=== PATIENT | female | born 1935 | race Caucasian/White ===

== ENCOUNTER 2020-01-28 14:13 | Emergency (ER) | payer MEDICARE, SELFPAY ==
[2020-01-28 14:16] VITALS: BP 185/100; PULSE 85; RESP 22; TEMP 36.5; O2SAT 98; BMI 37.1
--- NOTE | 2020-01-28 14:27 | EKG12_ITS ---
Test Reason : Blood Pressure : / mmHG Vent. Rate : 088 BPM Atrial Rate : 107 BPM P-R Int : 000 ms QRS Dur : 078 ms QT Int : 370 ms P-R-T Axes : 000 -05 022 degrees QTc Int : 447 ms Atrial fibrillation Inferior infarct , age undetermined Possible Anterolateral infarct , age undetermined Abnormal ECG Confirmed by HASMUKH COLE, CORINA ([id number]), avid editor DANY TELLES ([id number]) on 02/01/2020 1:34:35 PM Referred By: Confirmed By:CORINA NOE MD
--- NOTE | 2020-01-28 14:27 | RAD_ITS ---
STUDY: X-RAY CHEST REASON FOR EXAM: Female, 84 years old. Right side back pain that radiates into arm, dyspnea on exertion TECHNIQUE: PA and lateral views of the chest. COMPARISON: None. FINDINGS: EKG electrodes are seen. Calcified granulomatous disease. Mild elevation of the right hemidiaphragm. No acute abnormality is seen. There is no demonstrated pleural abnormality. Normal size heart. There are calcified mediastinal lymph nodes. Normal visualized pulmonary arteries. There is atherosclerotic calcification of the aortic arch with tortuosity. There are diffuse degenerative changes of the visualized thoracic spine. Normal visualized ribs, clavicles, and shoulders. There is no demonstrated abnormality of the visualized soft tissue structures of the upper abdomen. RAD/Chest PA and Lateral IMPRESSION: No acute abnormality is seen. Electronically Signed: Servando Dominguez, at 15:08 EDT , Service support ,
--- NOTE | 2020-01-28 14:28 | ED.DCSUM_ITS ---
History of Present Illness Chief Complaint: Upper Extremity Injury Detail of Chief Complaint: Pain that patient localizes to the right axilla region Informant: Patient Onset: Weeks - Onset 2 weeks ago Context: Sudden Onset Timing: Continuous Quality: Pain Location: Right axillary/shoulder region Current Severity: Mild Maximum Severity: Severe Worsened by: Twisting, breathing and certain movements of RUE Relieved by: Thank Associated Symptoms: Patient does admit to cardiac symptoms Narrative: Patient is an 84-year-old woman with multiple medical problems who presents with chief complaint of pain in the right shoulder region. She states she was seen at outside facility had x-rays last week that were reported as normal/no acute findings. Patient does have history of arthritis. She not know the type of arthritis she has. She denies history of gout or pseudogout. She denies fever, chills night sweats. She denies weight gain or weight loss. She was unaware that she had bruises posterior axillary line on the right side. She denies paresthesia, anesthesia motor aches. She denies chest discomfort. She does report shortness of breath and dyspnea on exertion. She has been sleeping in a chair the past month. She also admits that her feet have been swollen. She attributes to having potato chips last evening. She denies PND. She is on an anticoagulant, Eliquis. She believes she is on the Eliquis because of irregular heartbeat. There is no history of VTE. She denies dysuria, frequency or hematuria. Prior similar symptoms: Yes Recent Illness/Hospitalization: Yes - Past Medical History (1) History of hypertension Status: Acute (2) History of diabetes mellitus Status: Acute (3) History of hypercholesterolemia Status: Acute (4) History of atrial fibrillation Status: Acute (5) long-term current use of anticoagulant therapy Status: Acute (6) History of congestive heart failure Status: Acute Past Medical History - Allergies and Home Meds Allergies/Adverse Reactions: Allergies Sulfa (Sulfonamide Antibiotics) Allergy (Verified 01/28/20 14:15) Unknown Primary Care Physician: Arron Shepard MD [Primary Care Provider] - Prior records reviewed: Yes Surgical History: noncontributory Lives: Alone Smoking Status: Never smoker Alcohol: None Drugs: None Review of Systems General: Denies: Chills, Fever, Malaise, Weight loss Eyes: Denies: Visual changes - bilaterally, Blurred Vision - bilaterally ENT: Denies: Bilateral ear pain, Rhinorrhea, Sore throat Cardiovascular: Denies: Chest pain, Palpitations Respiratory: Reports: Dyspnea, Dyspnea on exertion, Orthopnea. Denies: Cough, Sputum, Paroxysmal nocturnal dyspnea Gastrointestinal: Denies: Abdominal pain, Nausea, Vomiting, Diarrhea, Melena, Hematochezia Genitourinary: Denies: Dysuria, Hematuria, Frequency Musculoskeletal: Reports: Swelling, Extremity Pain. Denies: Neck pain, Back pain Skin: Denies: Rash, Wounds Neurological: Denies: Headache, Weakness Endocrine: Denies: Polyuria, Polydipsia Hematologic: Reports: Easy bruising. Denies: Easy bleeding Physical Exam Vital Signs/Narrative: Vital Signs Temp Pulse Resp BP Pulse Ox 01/28/20 14:16 97.7 F L 85 22 H 185/100 H 98 Inital Vital Signs reviewed: Yes General: Well nourished, Well developed, Obese, Acute Distress - And is in discomfort with movement and becomes tachypneic. Head: Normocephalic, Atraumatic Eyes: Perrl, EOMI. Negative for: Pale conjunctiva, Scleral icterus ENT: Moist mucous membranes, No rhinorrhea Neck: Supple, Nontender, No lymphadenopathy, No JVD Cardiovascular: No murmurs, Irregular Respiratory: Rales, Diminished, - - Bruising noted posterior axillary line over the right fourth, fifth and sixth ribs. Negative for: No distress, CTA bilaterally, Chest nontender Abdomen: Soft, Nontender, Nondistended, Normal bowel sounds, No masses Rectal: Deferred Back: - - She has tenderness over the bruised area. Negative for: Nontender, Normal Inspection, CVA tenderness, Spinal tenderness Extremities: Nontender, Edema - Approximately 4 mm of pitting edema Skin: Normal color. Negative for: No rash - She does have dry skin. Neurological: Alert, Oriented x3, Cranial nerves II-XII grossly intact, Normal Strength, Normal Sensation Psychological: Normal affect Diagnostic/Tx/Re-eval Chest X-Ray - ED: 2 View, Read by ED Physician, Read by Radiologist, No Acute Disease, Chronic Changes, - Impressions Chest X-Ray 01/28/20 14:27 IMPRESSION: No acute abnormality is seen. Electronically Signed: Servando Dominguez, at 15:08 EDT , Service support , 01/28/20 14:27 Chest PA and Lateral [RAD] Stat Laboratory Results 01/28/20 01/28/20 01/28/20 14:45 14:45 14:45 WBC 8.1 RBC 4.40 Hgb 14.1 Hct 43.2 MCV 98.2 MCH 32.0 MCHC 32.6 RDW Std Deviation 50.3 H RDW Coeff of [place] 13.9 Plt Count 187 MPV 10.4 Immature Gran % (Auto) 0.900 Neut % (Auto) 74.5 H Lymph % (Auto) 18.[address] [place] % (Auto) 5.8 Eos % (Auto) 0.4 Baso % (Auto) 0.1 Absolute Neuts (auto) 6.0 Absolute Lymphs (auto) 1.48 Nucleated RBC % 0 Sodium 138 Potassium 4.1 Chloride 102 Carbon Dioxide 29.0 Anion Gap 7 BUN 29 H Creatinine 1.37 H Estim Creat Clear Calc 29.64 Est GFR (MDRD) Af Amer 47 L Est GFR (MDRD) Non-Af 39 L BUN/Creatinine Ratio 21.2 H Glucose 128 H Calcium 9.3 B-Natriuretic Peptide 439.4 H Creatinine elevated 1.37. This is approximate baseline. BNP is elevated 439. She is not anemic. Patient was informed of results. Patient now admits to non compliance with diuretics. - EKG Initial EKG Interpretation: Atrial Fibrillation - Fibrillation with a ventricular rate of 88. QS duration 78 ms. QT duration 370 ms with a QTC of 447 ms. [place] is normal. There is early transition. There is no acute ischemic changes noted. - Medical Decision Making Based on patient's history, physical findings will obtain chest x-ray to evaluate for rib fractures, hemothorax and congestive heart failure. Appropriate blood work was ordered. EKG was obtained to rule out ischemia. Patient was treated with Lasix for her mild congestive heart failure. She was treated with opiate analgesia and Kenalog for her shoulder pain. ED Disposition - Plan for ED Patient: Disposition: Home or Assisted Living Diagnosis: Acute exacerbation of congestive heart failure, Pain of right shoulder region Instructions: ED CHF General, ED Shoulder Pain Uncertain Cause Prescriptions: Hydrocodone Bitart/Apap 5-325 [Avalon 5MG-325MG] 1 tablet PO Q6H PRN PRN 3 Days #10 tablet PRN Reason: Pain Transmission Status: Sent to [facility] Referrals: Arron Shepard MD [Primary Care Provider] -
[2020-01-28 15:00] LABS: Absolute Lymphocyte Count 1.48 X10^3/uL (0.83-4.51); Basophil# 0.01 X10^3/uL; Basophil% 0.1 % (0-1); Eosinophil# 0.03 X10^3/uL; Eosinophils% 0.4 % (0-5); Hematocrit 43.2 % (37-47); Hemoglobin 14.1 g/dL (12.0-15.0); Lymphocyte # 1.48 X10^3/ul (4.0); Lymphocyte % 18.3 % (19-41); Mean Corp Hgb Conc 32.6 g/dL (32-36); Mean Corpuscular Volume 98.2 fL (81-99); Mean Platelet Vol. 10.4 fl (6.2-12.0); Monocyte# 0.47 X10^3/uL; Monocyte% 5.8 % (0-10); NRBC Flagged by Analyzer 0 % (0-5); Neutrophil # 6.01 X10^3/uL (2.7-7.7); Neutrophil % 74.5 % (47-70); Platelet Count 187 K/mm3 (150-450); RBC Distribution Width CV 13.9 % (11.6-14.6); RBC Distribution Width SD 50.3 fl (35.1-43.9); White Blood Count 8.1 K/mm3 (4.4-11.0)
[2020-01-28 15:17] LABS: Anion Gap 7 (5-15); BUN 29 mg/dL (7-18); BUN/Creat Ratio 21.2 RATIO (10-20); Calcium,Total 9.3 mg/dL (8.5-10.1); Chloride 102 mmol/L (98-107); Creatinine, Serum 1.37 mg/dL (0.55-1.02); EST Glomerular Filtration Rate 39 mL/min (>60); Est Glom Filt Rate - Afr Amer 47 mL/min (>60); Estimated Creatinine Clearance 29.64 ml/min; Glucose 128 mg/dL (74-106); Potassium 4.1 mmol/L (3.5-5.1); Sodium Level 138 mmol/L (136-145)
[2020-01-28 15:29] LABS: BNP,B-Type NATRIURETIC PEPTIDE 439.4 pg/mL (0-100)
[2020-01-28] MEDS: Furosemide 40 MG/4 ML Vial IV (16:22)
[2020-01-28] MEDS: Triamcinolone Acetonide 40 MG/ML Vial IM (16:22)
[2020-01-28] MEDS: Morphine 4 MG/ML Syringe IV (16:22)
[2020-01-28] MEDS: Ondansetron 4 MG/2 ML Vial IV (16:22)
[2020-01-28 16:24] VITALS: BP 162/90; PULSE 91; RESP 17; O2SAT 97
== END 2020-01-28 16:46 | disposition home or self-care (01) ==
PROVIDERS: Emergency Provider Emergency Medicine
DX: I11.0 Hypertensive heart disease with heart failure (principal); I50.9 Heart failure, unspecified; M25.511 Pain in right shoulder; E11.9 Type 2 diabetes mellitus without complications; E78.00 Pure hypercholesterolemia, unspecified; I48.91 Unspecified atrial fibrillation; Z79.02 Long term (current) use of antithrombotics/antiplatelets; Z79.899 Other long term (current) drug therapy; E66.9 Obesity, unspecified; Z91.14 Patient's other noncompliance with medication regimen
CPT/HCPCS: 71046; 80048; 83880; 85025; 93005; 96372; 96374; 96375; 99284; A4216; J1940; J2405

== ENCOUNTER → 2020-02-25 | Outpatient (CLI) | payer MEDICARE, SELFPAY ==
[2020-01-28 14:16] VITALS: BMI 37.1
--- NOTE | 2020-02-25 14:48 | CT_ITS ---
STUDY: CT CERVICAL SPINE WITHOUT CONTRAST REASON FOR EXAM: Female, 84 years old. Spinal stenosis RADIATION DOSAGE (If Supplied By Facility): CTDIvol = ( 24.55 ) mGy, DLP = ( 464.29 ) mGycm TECHNIQUE: High resolution transaxial imaging was performed without contrast material. Sagittal and coronal images were reconstructed. Individualized dose optimization techniques were used for this CT. COMPARISON: None FINDINGS: Craniocervical junction is intact and aligned with extensive degenerative change at C1-C2 articulation. Cervical spine is straightened and aligned. Mineralization is normal. There are multilevel disc and endplate degenerative changes with bridging osteophytes at C5-C6. Paraspinous soft tissues are intact. Thecal sac is moderately compressed at C5-C6 and C6-C7 by ventral osteophytic change. Remainder of the levels have patent canal. There are scattered multilevel mild foraminal stenoses. CT/Spine Cervical without Contras IMPRESSION: 1. 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 Electronically Signed: Esau Seth, at 15:49 EDT Tel , Service support ,
== END | disposition home or self-care (01) ==
PROVIDERS: Referring Provider Physician Assistant Surgical; Visit Provider Physician Assistant Surgical
DX: M48.02 Spinal stenosis, cervical region (principal)
CPT/HCPCS: 72125

== ENCOUNTER → 2020-06-08 09:44 | Outpatient (CLI) | payer MEDICARE, SELFPAY ==
--- NOTE | 2020-06-08 10:47 | NEURO ---
NCS and/or EMG Patient Report Ordering Doctor: Antoine Talley DATE OF SERVICE: 06/08/20 Cherry Child is an 84-year-old female who presents with complaints of numbness and paresthesias in the right arm. Electrodiagnostic findings: Right median motor nerve demonstrates prolonged distal latency with normal amplitude and conduction velocity. Normal right ulnar motor responses noted. Prolonged right median F-wave. Prolonged right median sensory latency at the wrist. On needle EMG, all muscles tested in the right upper limb showed no evidence of denervation with normal motor unit action potentials. Electrodiagnostic impression: This is an abnormal study in the right upper limb. 1. Electrodiagnostic findings demonstrate right-sided median mononeuropathy. This is consistent with a mild to moderate right carpal tunnel syndrome. If there are any further questions please not hesitate to contact me
== END ==
PROVIDERS: Referring Provider Orthopaedic Surgery; Visit Provider Orthopaedic Surgery
DX: M47.22 Other spondylosis with radiculopathy, cervical region (principal)
CPT/HCPCS: 95886; 95910